=== PATIENT | female | born 1970 | race Caucasian/White ===

== ENCOUNTER 2016-10-31 10:09 | Day surgery (SDC) | payer BC ==
[2016-10-24 12:51] LABS: HEMATOCRIT 38.2 % (36.0-48.0); HEMOGLOBIN 12.5 g/dL (12.0-16.0)
--- NOTE | ~2016-10-31 | OP ---
Record Of Operation [facility] [address] [place]. [address] NAME: WALT WOOTEN : 66 STATUS : [facility]#: [id number] AGE: 46 ADM/REG DATE : 10/31/16 MR#: [id number] REPORT SERV DATE: 11/05/16 DICTATED BY: PERICO MAYS DATE: 11/05/16 REPORT STATUS : Draft TRANSCRIBED BY: ISAURA DATE: 11/05/16 DATE OF PROCEDURE: 10/31/2016 PREOPERATIVE DIAGNOSES: 1. Right hallux rigidus. 2. 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 POSTOPERATIVE DIAGNOSES: 1. Right hallux rigidus. 2. 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 PROCEDURE: Right 1st metatarsophalangeal joint cheilectomy with synthetic cartilage implant insertion. ANESTHESIA: General local anesthetic. ESTIMATED BLOOD LOSS: Minimal. COMPLICATIONS: None. INJECTABLES: Approximately 20 mL of a 1:1 mixture of Xylocaine plain and 0.5% Marcaine plain. MATERIALS: Include Cartiva synthetic cartilage implant; 2-0, 4-0 Vicryl; 4-0 Monocryl; Steri Strips; well-padded sterile dressing; CAM walker. PROCEDURE IN DETAIL: Under mild sedation, the patient was brought to the operating room, placed on the operating table in supine position. Following general anesthesia, local anesthesia obtained about the patient's right foot. Right foot, ankle, and lower leg were scrubbed, prepped, and draped in usual aseptic manner. Attention was directed to the procedure. Procedure #1 is right 1st metatarsophalangeal joint cheilectomy with synthetic cartilage implant insertion. Attention was directed to the dorsal aspect of the right 1st metatarsophalangeal joint where an approximate 4 cm incision was made medial and parallel to the extensor tendon. The incision was deep in subcutaneous tissue with care being taken to identify and retract all vital neurovascular structures. All bleeders were cauterized and ligated as necessary. Linear capsular incision was made medial and parallel to the extensor tendon. Capsular tissues were reflected medially and laterally, again laterally exposing the first metatarsophalangeal joint. Abundant synovitis was visualized and was resected. Large dorsal bossing and spurring were visualized as well and a small loose body was present too, these were resected and smoothed. Upon visualization of the metatarsal head, there was an approximate 40% cartilaginous loss of the metatarsal head. Copious irrigation ensued. At this time, attention directed to the insertion of the synthetic cartilage implant. At this time, the appropriate sizer was placed on the metatarsal head in a cannulated fashion. A 10 mm reamer was placed through the central portion of the greatest cartilage loss. This Record Of Operation [facility] [id number] [facility]. [address] NAME: WALT WOOTEN : 66 STATUS : [facility]#: [id number] AGE: 46 ADM/REG DATE : 10/31/16 MR#: [id number] REPORT SERV DATE: 11/05/16 DICTATED BY: PERICO MAYS DATE: 11/05/16 REPORT STATUS : Draft TRANSCRIBED BY: ISAURA DATE: 11/05/16 was drilled to the appropriate depth. After removal of the cannulated guidewire, the implant was sized and a compression fit applicator was utilized to aid with insertion of the synthetic cartilage implant. Upon insertion, excellent compression and stabilization of the implant was present. At this time, dorsiflexion and plantar flexion of the great toe was noted to be greatly improved and approximately 40-60 degrees of range of motion was appreciated with dorsiflexion. There is no catching upon the smooth range of motion. At this time, attention directed to closure. After copious irrigation, the capsular tissues were reapproximated and coapted utilizing 2-0 Vicryl, subcutaneous tissue was reapproximated using 4-0 Vicryl, skin was reapproximated using 4-0 Monocryl subcuticular suture technique. Steri-Strips applied. A well-padded sterile dressing and well-padded CAM walker was placed about the patient's right foot and ankle. The patient tolerated the procedure and anesthesia well, was transferred to the recovery room with vital signs stable and vascular status intact to all toes. Following a period of postoperative monitoring, patient will be discharged home with the following written and oral postoperative instructions. 1. Keep dressings clean, dry, and intact. 2. Partial weightbearing as tolerated in CAM boot with crutches, knee walker for long distances as tolerated. The patient will follow up with Dr. Mays in 7 to 14 days. KELLY/ISAURA Nia Mays D.P.M. / [id number] CC: Adiel Maurer M.D.
[~2016-10-31 10:09] MED LIST: ADVIL PO; ALLEGRA180 PO; HARD NAILS PO; LEVOTHYROXIN50 MCG PO; NEXIUM40 PO; PR25 PO; PRAVACHOL40 MG PO; PROBIOTIC PO; SUDAFED PO; VIACTIV PO; XYZAL5 MG PO; [UNRECOGNIZED DRUG - CODE] PO
== END 2016-10-31 18:23 | disposition home or self-care (01) ==
LOC: SDC 10:09
PROVIDERS: Podiatrist Foot & Ankle Surgery
PROC: 0SRM0JZ Replacement of Right Metatarsal-Phalangeal Joint with Synthetic Substitute, Open Approach (ICD-10-PCS; principal; 2016-10-31 11:45)
DX: M20.21 Hallux rigidus, right foot (principal); M19.071 Primary osteoarthritis, right ankle and foot; E78.5 Hyperlipidemia, unspecified; M13.88 Other specified arthritis, other site; K21.9 Gastro-esophageal reflux disease without esophagitis; E03.9 Hypothyroidism, unspecified; G43.909 Migraine, unspecified, not intractable, without status migrainosus; E78.00 Pure hypercholesterolemia, unspecified; Z90.49 Acquired absence of other specified parts of digestive tract; Z98.51 Tubal ligation status; D64.9 Anemia, unspecified; Z98.890 Other specified postprocedural states; Z87.891 Personal history of nicotine dependence
CPT/HCPCS: 76000; 84703; 85014; 85018; A9270-GY; J0690; J1170; J2250; J2405; J2550; J3010